=== PATIENT | male | born 1980 | race Caucasian/White ===

== ENCOUNTER 2017-02-14 08:32 | Emergency (ER) | payer BC ==
[2017-02-14 08:52] VITALS: BP 125/89
[2017-02-14] MEDS ORDERED: Sodium Chloride 0.9% 10 ML Syringe FLUSH PRN (09:07)
[2017-02-14] MEDS ORDERED: Ketorolac 30 MG/ML SDV IVPUSH ONE (09:07)
[2017-02-14] MEDS ORDERED: HYDROmorphone 1 MG/ML Syringe IVPUSH ONE ×2 (09:07→11:47)
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
--- NOTE | 2017-02-14 11:14 | MR ---
MRI lumbar spine Technique: T1 and T2-weighted axial images were obtained from above the L1-2 disc inferiorly through the L5-S1 disc. T1, T2 and fat-suppressed inversion recovery sagittal images were also obtained through the lumbar spine. Comparison: No previous lumbar spine imaging. Findings: T12-L1: Slight Schmorl node deformities are seen. Posterior disc is preserved. No central canal stenosis or neural foraminal stenosis is seen. L1-2: Schmorl node deformities are seen. Posterior disc is preserved. No central canal stenosis or neural foraminal stenosis is seen. L2-3: Schmorl node deformities are seen. Posterior disc is preserved. No central canal stenosis or neural foraminal stenosis is seen. L3-4: Schmorl node deformities are seen. Posterior disc is preserved. No central canal stenosis or neural foraminal stenosis is seen. L4-5: Minimal circumferential disc bulge is seen. Posterior disc has a planar margin. Minimal degenerative apophyseal change is noted. No central canal stenosis is seen. Neural foramina are patent where the nerve roots exit. L5-S1: Moderate disc space narrowing is seen. Circumferential disc bulge is present. Increased signal is seen within the posterior annulus compatible small annular tear. There appears to be a small disc herniation posterolaterally to the left side which impinges upon the left S1 nerve root. No central canal stenosis is seen. Conus medullaris and cauda equina shows no abnormal signal or mass. Mild degenerative dehydration change is noted within the L5-S1 disc. Impression: 1. Degenerative change at L5-S1 with small disc herniation is felt to be present posteriorly to the left of midline slightly impinging upon the left S1 nerve root. 2. Other incidental findings as noted above. Diagnostic code #3
== END 2017-02-14 12:47 | disposition home or self-care (01) ==
LOC: JD.ED 08:32
DX: M51.06 Intervertebral disc disorders with myelopathy, lumbar region (principal); Z98.890 Other specified postprocedural states
CPT/HCPCS: 72148; 96374; 96375; 96376; 99284; J1170; J1885; J3360; J7050

== ENCOUNTER 2019-04-26 18:05 | Emergency (ER) | payer OTHER, BC ==
[2019-04-26 18:40] VITALS: BP 134/80
[2019-04-26] MEDS ORDERED: Diphtheria,Pertussis(Acell),Tetanus Vaccine 0.5 ML SDV IM ONE (18:46)
--- NOTE | 2019-04-26 18:53 | EDM.PDOC ---
ED HPI GENERAL MEDICAL PROBLEM - General Chief Complaint: Bite:Animal, Insect Stated Complaint: DOG BITE Time Seen by Provider: 04/26/19 18:36 Source of Information: Reports: Patient History Limitations: Reports: No Limitations - History of Present Illness INITIAL COMMENTS - FREE TEXT/NARRATIVE: The patient works for [employer] and he got bit by a dog today. This is a dog he sees every week and he is well and has no problems. He has a puncture wound to the right lower leg with some ecchymosis. His tetanus is not up to date. Onset: Sudden Duration: Hour(s): Location: Reports: Lower Extremity, Right (Calf) Quality: Reports: Sharp Severity: Mild Improves with: Reports: None Worsens with: Reports: None Context: Reports: Trauma (Bit by a dog) Associated Symptoms: Reports: No Other Symptoms Treatments ADMINISTRATIVE LAW JUDGE: Reports: Other (see below) Other Treatments ADMINISTRATIVE LAW JUDGE: none Right Lower Leg Pain Score (Numeric/FACES): 1 - Related Data Allergies Allergy/AdvReac Type Severity Reaction Status Date / Time No Known Allergies Allergy Verified 02/14/17 08:52 Home Meds: Home Meds Amoxicillin/Clavulanate K [Augmentin 875-125 MG] 1 tab PO BID #20 tablet [Rx] Past Medical History - Past Health History Medical/Surgical History: Denies Medical/Surgical History - Past Surgical History GI Surgical History: Reports: Hernia, Abdominal, Hernia, Inguinal Neurological Surgical History: Reports: Discectomy, Lumbar Spine Other Neurological Surgeries/Procedures: L4 microdiscectomy Musculoskeletal Surgical History: Reports: Other (See Below) Other Musculoskeletal Surgeries/Procedures:: L4 microdiskectomy Social & Family History - Family History Family Medical History: Noncontributory - Tobacco Use Smoking Status *Q: Never Smoker - Caffeine Use Caffeine Use: Reports: Energy Drinks - Recreational Drug Use Recreational Drug Use: No ED ROS GENERAL - Review of Systems Review Of Systems: See Below Constitutional: Reports: No Symptoms HEENT: Reports: No Symptoms Respiratory: Reports: No Symptoms Cardiovascular: Reports: No Symptoms Endocrine: Reports: No Symptoms GI/Abdominal: Reports: No Symptoms : Reports: No Symptoms Musculoskeletal: Reports: Other (Right leg dog bite) ED EXAM, ANIMAL BITE - Physical Exam Exam: See Below Exam Limited By: No Limitations General Appearance: Alert, No Apparent Distress Ears: Normal External Exam Nose: Normal Inspection Head: Atraumatic, Normocephalic Neck: Normal Inspection Respiratory/Chest: No Respiratory Distress Extremities: Other (Puncture wound to the right calf with ecchymosis) Course - Vital Signs Last Recorded V/S: Last Vital Signs Temp 97.3 F 04/26/19 18:37 Pulse 48 L 04/26/19 18:37 Resp 20 04/26/19 18:37 BP 134/80 04/26/19 18:37 Pulse Ox 99 04/26/19 18:37 - Orders/Labs/Meds Orders: Active Orders 24 hr Category Date Time Status Vaccines to be Administered [RC] PER UNIT ROUTINE Care 04/26/19 18:46 Active Meds: Medications Discontinued Medications Generic Name Dose Route Start Last Admin Trade Name Freq PRN Reason Stop Dose Admin Diphtheria/Tetanus/Acell Pertussis 0.5 ml 04/26/19 18:46 Adacel IM 04/26/19 18:47 .ONCE ONE - Re-Assessments/Exams Free Text/Narrative Re-Assessment/Exam: 04/26/19 18:51 I updated his tetanus and I will get him on some augmentin. Departure - Departure Time of Disposition: 18:55 Disposition: Home, Self-Care 01 Condition: Good Clinical Impression: Dog bite Qualifiers: Encounter type: initial encounter Qualified Code(s): W54.0XXA - Bitten by dog, initial encounter - Discharge Information *PRESCRIPTION DRUG MONITORING PROGRAM REVIEWED*: No *COPY OF PRESCRIPTION DRUG MONITORING REPORT IN PATIENT MOON: No Prescriptions: Amoxicillin/Clavulanate K [Augmentin 875-125 MG] 1 tab PO BID #20 tablet Referrals: Guanaco Hankins Jr, MD [Primary Care Provider] - Additional Instructions: Take augmentin 2 times per day for 10 days. Clean your wound with warm soapy water 2 times per day and apply antibiotic ointment. Please return if you are worse. - My Orders Last 24 Hours: My Active Orders 04/26/19 18:46 Vaccines to be Administered [RC] PER UNIT ROUTINE - Assessment/Plan Last 24 Hours: My Active Orders 04/26/19 18:46 Vaccines to be Administered [RC] PER UNIT ROUTINE
== END 2019-04-26 19:17 | disposition home or self-care (01) ==
LOC: JD.ED 18:05
DX: S81.831A Puncture wound without foreign body, right lower leg, initial encounter (principal); Z23 Encounter for immunization; W54.0XXA Bitten by dog, initial encounter
CPT/HCPCS: 90471; 90715; 99283

== ENCOUNTER 2023-01-16 23:43 | Emergency (ER) | payer BC ==
[2023-01-17] VITALS: BP 136/79; PULSE 50
[2023-01-17 00:28] LABS: BASOPHILS ABSOLUTE AUTO 0.03 K/mm3 (0.01-0.08); BASOPHILS PERCENT AUTO 0.5 % (0.1-1.2); EOSINOPHILS ABSOLUTE AUTO 0.46 K/mm3 (0.04-0.54); EOSINOPHILS PERCENT AUTO 8.1 (0.8-7.0); HEMATOCRIT 42.7 % (40.1-51.0); HEMOGLOBIN 15.1 gm/dl (13.7-17.5); IMMATURE GRAN ABSOLUTE AUTO 0.01 K/mm3 (0.00-0.10); IMMATURE GRAN PERCENT AUTO 0.2 % (<=1.0); LYMPHOCYTES ABSOLUTE AUTO 1.58 K/mm3 (1.32-3.57); LYMPHOCYTES PERCENT AUTO 27.8 % (21.8-53.1); MEAN CORPUSCULAR HGB CONC 35.4 g/dl (32.2-35.5); MONOCYTES ABSOLUTE AUTO 0.47 K/mm3 (0.30-0.82); MONOCYTES PERCENT AUTO 8.3 % (5.3-12.2); NEUTROPHILS ABSOLUTE AUTO 3.14 K/mm3 (1.78-5.38); NEUTROPHILS PERCENT AUTO 55.1 % (34.0-67.9); PLATELET COUNT,PLT 207 K/mm3 (163-337); RED BLOOD CELL COUNT 5.21 M/mm3 (4.63-6.08); WHITE BLOOD CELL COUNT,WBC 5.69 K/mm3 (4.23-9.07)
[2023-01-17 00:58] LABS: A/G RATIO 1.2 (1-2); ALBUMIN 3.5 g/dl (3.4-5.0); ANION GAP 9.7 (5-15); BILIRUBIN TOTAL 0.4 mg/dL (0.2-1.0); CALCIUM 8.3 mg/dL (8.5-10.1); EST CRCL DRUG DOSING (CG) 113.84 mL/min; POTASSIUM,K 3.7 mEq/L (3.5-5.1); PROTEIN TOTAL,TP 6.5 g/dl (6.4-8.2)
[2023-01-17] MEDS ORDERED: Amoxicillin 500 MG Cap PO ONE (01:41)
== END 2023-01-17 01:55 | disposition home or self-care (01) ==
LOC: JD.ED 23:43
DX: K11.20 Sialoadenitis, unspecified (principal); H65.02 Acute serous otitis media, left ear; K21.9 Gastro-esophageal reflux disease without esophagitis; Z79.899 Other long term (current) drug therapy
CPT/HCPCS: 36415; 80053; 82150; 85025; 86140; 86308; 86735; 87651; 99283; A9270